=== PATIENT | male | born 1975 | race Caucasian/White ===

== ENCOUNTER 2017-10-25 03:20 | Inpatient (IN) | payer BC, OTHER ==
[~2017-10-25] VITALS: Ht 172.7 cm; Wt 83.1 kg
[2017-10-25] MEDS ORDERED: ONDANSETRON INJ 2 MG/ML 2 ML VIAL IV STA (03:38)
[2017-10-25] MEDS ORDERED: SODIUM CHLORIDE 0.9% 1000ML 1,000 ML IV STA (03:38)
[2017-10-25] MEDS ORDERED: KETOROLAC TROMETHAMINE 30 MG/ML VIAL IV STA (03:38)
[2017-10-25] MEDS ORDERED: HYDROmorphone INJ 1 MG/ML SYR IV STA (03:38)
--- NOTE | 2017-10-25 03:53 | EMERGENCY ROOM VISIT NOTE ---
History Report prepared by Fernando: Josey Singh Under the Supervision of: Dr. Narayan Ellison M.D. First contact with patient: 03:32 Chief Complaint: SKIN PROBLEM Stated Complaint: SKIN PROBLEM History of Present Illness The patient is a 42 year old male who presents to the Emergency Room with complaints of a worsening skin problem that started after he received his second series of psoriasis injections 2 days ago. He reports that his body is covered in rash and that he hurts everywhere. He rates his current pain an 8/ 10. Per patient's friend, the patient's skin feels like it's on fire and the patient appears to have difficulty ambulating secondary to his pain and skin pressure. The patient also notes that he takes an antidepressant and has no known allergies. Source of History: patient, friend Onset: 2 days ago Position: other (skin) Symptom Intensity: 8/10 Quality: other (skin problem) Timing: worsening Associated Symptoms: + rash Note: Additional symptoms: difficulty ambulating Review of Systems See HPI for pertinent positives & negatives. A total of 10 systems reviewed and were otherwise negative. Past Medical & Surgical Medical Problems: (1) Depression (2) Rash Family History No pertinent family history Social History Smoking Status: Never Smoker Marital Status: single Current/Historical Medications Scheduled Bupropion (Wellbutrin), 100 MG PO DAILY Citalopram Hydrobromide (Citalopram Hydrobromide), 1 TAB PO BID Cyanocobalamin (Vitamin B-12), 1,000 MCG PO DAILY Divalproex Sodium (Depakote), 1 TAB PO BID Folic Acid (Folvite), 1 MG PO DAILY Methotrexate (Methotrexate), 3 TABS PO WK Prednisone (Prednisone), 10 MG PO UD Miscellaneous Medications [Unknown Tb Med] Allergies Coded Allergies: Codeine (Verified Allergy, Unknown, UNKNOWN, 10/25/17) Physical Exam Vital Signs Date Time Temp Pulse Resp B/P (MAP) Pulse Ox O2 Delivery O2 Flow Rate FiO2 10/25/17 04:36 77 10/25/17 03:25 36.3 79 18 138/92 96 Room Air Physical Exam GENERAL: Awake, alert, well-appearing, in no acute distress HENT: Normocephalic, atraumatic. No oral mucosal lesions in mouth. EYES: Normal conjunctiva. Sclera non-icteric. NECK: Supple. No nuchal rigidity. FROM. No JVD. RESPIRATORY: Clear to auscultation. CARDIAC: Regular rate, normal rhythm. Extremities warm and well perfused. Pulses equal. ABDOMEN: Soft, non-distended. No tenderness to palpation. No rebound or guarding. No masses. RECTAL: Deferred. MUSCULOSKELETAL: Chest examination reveals no tenderness. The back is symmetrical on inspection without obvious abnormality. There is no CVA tenderness to palpation. No joint edema. LOWER EXTREMITIES: Calves are equal size bilaterally and non-tender. No edema. No discoloration. NEURO: Normal sensorium. No sensory or motor deficits noted. SKIN: Psoriatic like rash on hands, legs, trunk, back. Medical Decision & Procedures ER Provider Diagnostic Interpretation: CHEST ONE VIEW PORTABLE CLINICAL HISTORY: possible history of TB COMPARISON STUDY: No previous studies for comparison. FINDINGS: The heart is at the upper limits of normal in size. There is no failure. There is no focal pulmonary consolidation. There are no pleural effusions. No granulomatous calcifications are visualized. There is no conventional radiographic evidence of adenopathy.[ IMPRESSION: No active disease in the chest. Electronically signed by: Bal Macario M.D. 10/25/2017 6:40 AM Dictated Date/Time: 10/25/2017 6:40 AM Laboratory Results 10/25/17 04:07 Red Blood Count 4.92, Mean Corpuscular Volume 90.9, Mean Corpuscular Hemoglobin 30.7, Mean Corpuscular Hemoglobin Concent 33.8, Mean Platelet Volume 10.2, Neutrophils (%) (Auto) 63.7, Lymphocytes (%) (Auto) 17.7, Monocytes (%) (Auto) 12.3, Eosinophils (%) (Auto) 5.3, Basophils (%) (Auto) 0.4, Neutrophils # (Auto ) 4.45, Lymphocytes # (Auto) 1.24, Monocytes # (Auto) 0.86, Eosinophils # (Auto ) 0.37, Basophils # (Auto) 0.03 10/25/17 04:07 Test 10/25/17 04:07 10/25/17 04:08 White Blood Count 6.99 K/uL (4.8-10.8) Red Blood Count 4.92 M/uL (4.7-6.1) Hemoglobin 15.1 g/dL (14.0-18.0) Hematocrit 44.7 % (42-52) Mean Corpuscular Volume 90.9 fL (80-100) Mean Corpuscular Hemoglobin 30.7 pg (25-34) Mean Corpuscular Hemoglobin Concent 33.8 g/dl (32-36) Platelet Count 198 K/uL (130-400) Mean Platelet Volume 10.2 fL (7.4-10.4) Neutrophils (%) (Auto) 63.7 % Lymphocytes (%) (Auto) 17.7 % Monocytes (%) (Auto) 12.3 % Eosinophils (%) (Auto) 5.3 % Basophils (%) (Auto) 0.4 % Neutrophils # (Auto) 4.45 K/uL (1.4-6.5) Lymphocytes # (Auto) 1.24 K/uL (1.2-3.4) Monocytes # (Auto) 0.86 K/uL (0.11-0.59) Eosinophils # (Auto) 0.37 K/uL (0-0.5) Basophils # (Auto) 0.03 K/uL (0-0.2) RDW Standard Deviation 44.0 fL (36.4-46.3) RDW Coefficient of Variation 13.4 % (11.5-14.5) Immature Granulocyte % (Auto) 0.6 % Immature Granulocyte # (Auto) 0.04 K/uL (0.00-0.02) Anion Gap 9.0 mmol/L (3-11) Est Creatinine Clear Calc Drug Dose 85.4 ml/min Estimated GFR () 88.3 Estimated GFR (Non- 76.2 BUN/Creatinine Ratio 11.7 (10-20) Calcium Level 8.1 mg/dl (8.5-10.1) Total Bilirubin 0.3 mg/dl (0.2-1) Direct Bilirubin < 0.1 mg/dl (0-0.2) Aspartate Amino Transf (AST/SGOT) 17 U/L (15-37) Alanine Aminotransferase (ALT/SGPT) 25 U/L (12-78) Alkaline Phosphatase 71 U/L (45-117) Total Protein 7.4 gm/dl (6.4-8.2) Albumin 3.4 gm/dl (3.4-5.0) Lipase 278 U/L (73-393) Prothrombin Time 10.4 SECONDS (9.0-12.0) Prothromb Time International Ratio 1.0 (0.9-1.1) Labs reviewed by ED physician. Medications Administered Medications (Trade) Dose Ordered Sig/Britt Route Start Time Stop Time Status Last Admin Dose Admin Hydromorphone HCl (Dilaudid Inj) 1 mg NOW STAT IV 10/25/17 03:38 10/25/17 03:40 DC 10/25/17 04:11 1 MG Ketorolac Tromethamine (Toradol Inj) 30 mg NOW STAT IV 10/25/17 03:38 10/25/17 03:40 DC 10/25/17 04:11 30 MG Ondansetron HCl (Zofran Inj) 4 mg NOW STAT IV 10/25/17 03:38 10/25/17 03:40 DC 10/25/17 04:10 4 MG Sodium Chloride 1,000 ml @ 999 mls/hr Q1H1M STAT IV 10/25/17 03:38 10/25/17 04:38 DC 10/25/17 04:10 999 MLS/HR Methylprednisolone Sodium Succinate (Solu-Medrol IV) 125 mg NOW STAT IV 10/25/17 04:30 10/25/17 04:31 DC 10/25/17 04:46 125 MG Ranitidine HCl (zANTac TAB) 150 mg NOW ONCE PO 10/25/17 04:45 10/25/17 04:46 DC 10/25/17 04:46 150 MG Diphenhydramine HCl (Benadryl Inj) 50 mg NOW STAT IV 10/25/17 04:31 10/25/17 04:33 DC 10/25/17 04:46 50 MG ED Course 0334: Past medical records reviewed. The patient was evaluated in room B9. A complete history and physical examination was performed. 0519: I discussed the patient's case with Dr. Long - Family Medicine, [facility], he has agreed to evaluate the patient for further management and care. Medical Decision This is a 42-year-old male who presents emergency department with a severe rash. It is very difficult to get a story from this patient during a period of high volume and high acuity therefore he was interviewed multiple times. From what I can gather the patient was placed on a biologic for his psoriasis. He has a normal CBC normal renal profile. I will note that the patient has no mucosal lesions indicative of Elizondo-John syndrome. An IV was established, the patient was given Solu-Medrol as well as Dilaudid here in the emergency department. I did discuss the patient's case with the hospitalist service who agreed to admit the patient. Patient and significant other were in agreement with the treatment plan. Medication Reconcilliation Current Medication List: was personally reviewed by me Blood Pressure Screening Patient's blood pressure: Normal blood pressure Consults Time Called: [phone] Consulting Physician: Dr. Long - Family Medicine, [facility] Returned Call: [phone] I discussed the patient's case with Dr. Long, he has agreed to evaluate the patient for further management and care. Impression Primary Impression: Rash Scribe Attestation The scribe's documentation has been prepared under my direction and personally reviewed by me in its entirety. I confirm that the note above accurately reflects all work, treatment, procedures, and medical decision making performed by me. Departure Information Dispostion Being Evaluated By Hospitalist Prescriptions Prednisone (Prednisone) 10 Mg Tab 10 MG PO UD for 14 Days, #31 TAB take 40mg per day (Four tabs) for 3 days; then 30mg per day (three tabs) for 3 days; then 20mg per day (two tabs) for 3 days; then 10mg per day (1 tab) for 3 days; then 5mg per day (0.5 tab) for 2 days. Prov: Kenneth Barrera ., D.Archie. 10/25/17 Referrals No Doctor, Assigned (PCP) Patient Instructions [facility]
[2017-10-25 04:18] LABS: BASO % 0.4 %; BASO ABS # 0.03 K/uL (0-0.2); EOS % 5.3 %; EOS ABS # 0.37 K/uL (0-0.5); HEMATOCRIT 44.7 % (42-52); HEMOGLOBIN 15.1 g/dL (14.0-18.0); IG# 0.04 K/uL (0.00-0.02); LYMPH % 17.7 %; LYMPH ABS # 1.24 K/uL (1.2-3.4); MEAN CELL VOLUME 90.9 fL (80-100); MEAN CORPUSCULAR HEMOGLOBIN 30.7 pg (25-34); MEAN CORPUSCULAR HGB CONC 33.8 g/dl (32-36); MEAN PLATELET VOLUME 10.2 fL (7.4-10.4); MONO % 12.3 %; MONO ABS # 0.86 K/uL (0.11-0.59); NEUT % 63.7 %; NEUT ABS # 4.45 K/uL (1.4-6.5); PLATELET COUNT 198 K/uL (130-400); RED CELL DISTRIBUTION WIDTH CV 13.4 % (11.5-14.5); WHITE BLOOD COUNT 6.99 K/uL (4.8-10.8)
[2017-10-25] MEDS ORDERED: FOLI1TAB8 PO (04:22)
[2017-10-25] MEDS ORDERED: DIVA500T59 PO (04:22)
[2017-10-25] MEDS ORDERED: CYAN10005 PO (04:22)
[2017-10-25] MEDS ORDERED: CITA10TA4 PO (04:22)
[2017-10-25] MEDS ORDERED: METH2.5T PO (04:25)
[2017-10-25] MEDS ORDERED: METHYLPREDNISOLONE 125 MG VIAL IV STA (04:30)
[2017-10-25] MEDS ORDERED: DUPI300I INJ (04:30)
[2017-10-25] MEDS ORDERED: BUPR-83 PO (04:31)
[2017-10-25] MEDS ORDERED: DiphenhydrAMINE HCL 50 MG/ML VIAL IV STA (04:31)
[2017-10-25] MEDS ORDERED: [UNRECOGNIZED DRUG - REMARK] (04:32)
[2017-10-25 04:37] LABS: ALBUMIN 3.4 gm/dl (3.4-5.0); ALKALINE PHOSPHATASE 71 U/L (45-117); ALT/SGPT 25 U/L (12-78); AST/SGOT 17 U/L (15-37); BLOOD UREA NITROGEN 14 mg/dl (7-18); CALCIUM 8.1 mg/dl (8.5-10.1); CARBON DIOXIDE 26 mmol/L (21-32); CREATININE 1.16 mg/dl (0.60-1.40); GLUCOSE 90 mg/dl (70-99); LIPASE 278 U/L (73-393); POTASSIUM 3.8 mmol/L (3.5-5.1); SODIUM 137 mmol/L (136-145); TOTAL PROTEIN 7.4 gm/dl (6.4-8.2)
[2017-10-25] MEDS ORDERED: RANITIDINE HCL 150 MG TAB PO ONE (04:45)
[2017-10-25] MEDS ORDERED: DEXAMETHASONE INJ 10 MG in SYRINGE 0 ML IV STA (05:24)
[2017-10-25] MEDS ORDERED: ONDANSETRON INJ 2 MG/ML 2 ML VIAL IV PRN (05:45)
[2017-10-25] MEDS ORDERED: MAGNESIUM HYDROXIDE SUSP 30 ML UDC PO PRN (05:45)
[2017-10-25] MEDS ORDERED: POLYETHYLENE (MIRALAX) 17 GM PACK PO PRN (05:45)
[2017-10-25] MEDS ORDERED: ALUMINUM/MAGNESIUM/SIMETH (MAALOX MAX) 30 ML UDC PO PRN (05:45)
[2017-10-25] MEDS ORDERED: ACETAMINOPHEN 325 MG TAB PO PRN (05:45)
[2017-10-25] MEDS ORDERED: DiphenhydrAMINE HCL 50 MG/ML VIAL IV PRN (05:45)
[2017-10-25] MEDS ORDERED: DEXAMETHASONE SOD INJ 10 MG/ML VIAL ONE (06:09)
--- NOTE | 2017-10-25 06:42 | DIAGNOSTIC IMAGING REPORT ---
CHEST ONE VIEW PORTABLE CLINICAL HISTORY: possible history of TB COMPARISON STUDY: No previous studies for comparison. FINDINGS: The heart is at the upper limits of normal in size. There is no failure. There is no focal pulmonary consolidation. There are no pleural effusions. No granulomatous calcifications are visualized. There is no conventional radiographic evidence of adenopathy.[ IMPRESSION: No active disease in the chest. Electronically signed by: Bal Macario M.D. 10/25/2017 6:40 AM Dictated Date/Time: 10/25/2017 6:40 AM
[2017-10-25 06:59] VITALS: BP 107/72; PULSE 82; TEMP 36.7; O2SAT 100
[2017-10-25 07:30] VITALS: BP 107/72; PULSE 82; TEMP 36.7; O2SAT 100; Ht 172.7 cm; Wt 83.1 kg
[2017-10-25] MEDS: hydrOXYzine HCL 25 MG TAB PO SCH ×2 (07:30→11:51)
[2017-10-25] MEDS ORDERED: RANITIDINE HCL 150 MG TAB PO SCH (08:00)
--- NOTE | 2017-10-25 08:14 | History and Physical ---
History & Physical Date & Time of Service: Oct 25, 2017 at 08:14 Chief Complaint: RASH Primary Care Physician: No Doctor, Assigned History of Present Illness Source: patient, family 42 yo PMHx with History of Psoriasis presenting with diffuse rash. Patient reports he was previously misdiagnosed as eczema and was on chronic prednisone. He was subsequently rebiopsied and told he had diagnosis of psoriasis instead. His medication was changed to Dupixent, started 8 mos go stopped 1 month ago. 1 month ago he received injection of new medication he does not recall, and a repeat dose 2 days ago. He is presenting with a severe worsening generalized scaly red rash which started within the last 2 days. He denies fevers, chills, n/v, abdominal pain, diarrhea sob, wheezing throat swelling. He has no known allergies other than codeine. Patient also reports 3wks ago blood test for TB positive. placed on isoniazid for 6 mos. Past Medical/Surgical History Medical Problems: (1) Depression (2) Psoriasis (3) Rash Family History No pertinent family history Social History Smoking Status: Never Smoker Smokeless Tobacco Use: No Alcohol Use: occasionally Drug Use: none Marital Status: single Housing status: lives with family Occupational Status: employed Immunizations History of Influenza Vaccine: Unknown History of Tetanus Vaccine?: Unknown History of Pneumococcal: Unknown History of Hepatitis B Vaccine: Unknown Allergies Coded Allergies: Codeine (Verified Allergy, Unknown, UNKNOWN, 10/25/17) Home Medications Scheduled Bupropion (Wellbutrin), 100 MG PO DAILY Citalopram Hydrobromide (Citalopram Hydrobromide), 1 TAB PO BID Cyanocobalamin (Vitamin B-12), 1,000 MCG PO DAILY Divalproex Sodium (Depakote), 1 TAB PO BID Folic Acid (Folvite), 1 MG PO DAILY Methotrexate (Methotrexate), 3 TABS PO WK Prednisone (Prednisone), 10 MG PO UD Miscellaneous Medications [Unknown Tb Med] Review of Systems Constitutional: No fever, No sweats, No weakness ENT: No sore throat, No trouble swallowing Respiratory: No cough, No shortness of breath Cardiovascular: No chest pain, No edema, No palpitations Abdomen: No pain, No vomiting, No diarrhea, No constipation Genitourinary - Male: No dysuria, No urinary frequency, No urinary urgency Integumentary: + rash, + itch, + new/changing skin lesions Physical Exam Vital Signs Date Time Temp Pulse Resp B/P (MAP) Pulse Ox O2 Delivery O2 Flow Rate FiO2 10/25/17 06:59 36.7 82 18 107/72 (84) 100 Room Air 10/25/17 06:13 70 14 130/85 99 Room Air 10/25/17 04:36 77 10/25/17 03:25 36.3 79 18 138/92 96 Room Air GENERAL: alert,moderate distress, EYE EXAM: PERRL and EOM's grossly intact OROPHARYNX: no exudate, no erythema, lips, buccal mucosa, and tongue normal and mucous membranes are moist NECK: supple, no nuchal rigidity, no adenopathy, non-tender LUNGS: Clear to auscultation. Normal chest wall mechanics HEART: no murmurs, S1 normal and S2 normal ABDOMEN: abdomen soft, non-tender, normo-active bowel sounds, no masses, no rebound or guarding. BACK: Back is symmetrical on inspection and there is no deformity SKIN: diffuse scaly patches pink in color, desquamation involving hands, feet NEURO EXAM: Normal sensorium, cranial nerves II-XII grossly intact, normal speech, no gross weakness of arms, no gross weakness of legs. Diagnostics Laboratory Results Results Past 24 Hours Test 10/25/17 04:07 10/25/17 06:31 Range/Units White Blood Count 6.99 4.8-10.8 K/uL Red Blood Count 4.92 4.7-6.1 M/uL Hemoglobin 15.1 14.0-18.0 g/dL Hematocrit 44.7 42-52 % Mean Corpuscular Volume 90.9 80-100 fL Mean Corpuscular Hemoglobin 30.7 25-34 pg Mean Corpuscular Hemoglobin Concent 33.8 32-36 g/dl Platelet Count 198 130-400 K/uL Mean Platelet Volume 10.2 7.4-10.4 fL Neutrophils (%) (Auto) 63.7 % Lymphocytes (%) (Auto) 17.7 % Monocytes (%) (Auto) 12.3 % Eosinophils (%) (Auto) 5.3 % Basophils (%) (Auto) 0.4 % Neutrophils # (Auto) 4.45 1.4-6.5 K/uL Lymphocytes # (Auto) 1.24 1.2-3.4 K/uL Monocytes # (Auto) 0.86 0.11-0.59 K/uL Eosinophils # (Auto) 0.37 0-0.5 K/uL Basophils # (Auto) 0.03 0-0.2 K/uL RDW Standard Deviation 44.0 36.4-46.3 fL RDW Coefficient of Variation 13.4 11.5-14.5 % Immature Granulocyte % (Auto) 0.6 % Immature Granulocyte # (Auto) 0.04 0.00-0.02 K/uL Sodium Level 137 136-145 mmol/L Potassium Level 3.8 3.5-5.1 mmol/L Chloride Level 102 98-107 mmol/L Carbon Dioxide Level 26 21-32 mmol/L Anion Gap 9.0 3-11 mmol/L Blood Urea Nitrogen 14 7-18 mg/dl Creatinine 1.16 0.60-1.40 mg/dl Est Creatinine Clear Calc Drug Dose 85.4 ml/min Estimated GFR () 88.3 Estimated GFR (Non- 76.2 BUN/Creatinine Ratio 11.7 10-20 Random Glucose 90 70-99 mg/dl Calcium Level 8.1 8.5-10.1 mg/dl Total Bilirubin 0.3 0.2-1 mg/dl Direct Bilirubin < 0.1 0-0.2 mg/dl Aspartate Amino Transf (AST/SGOT) 17 15-37 U/L Alanine Aminotransferase (ALT/SGPT) 25 12-78 U/L Alkaline Phosphatase 71 45-117 U/L Total Protein 7.4 6.4-8.2 gm/dl Albumin 3.4 3.4-5.0 gm/dl Lipase 278 73-393 U/L Microbiology Results 10/25/17 Blood Culture, Received Pending 10/25/17 Blood Culture, Received Pending Diagnostic Radiology CHEST ONE VIEW PORTABLE CLINICAL HISTORY: possible history of TB COMPARISON STUDY: No previous studies for comparison. FINDINGS: The heart is at the upper limits of normal in size. There is no failure. There is no focal pulmonary consolidation. There are no pleural effusions. No granulomatous calcifications are visualized. There is no conventional radiographic evidence of adenopathy.[ IMPRESSION: No active disease in the chest. Impression Assessment and Plan 42 yo PMHx with History of Psoriasis presenting with diffuse rash following injection of new medication unknown to patient for psoriasis which was administered 2 days ago following initial dose, also found to have positive TB blood tests per patient 3 weeks ago at outside hospital for which he has been suspected to be on Isoniazid. Diffuse Rash - diffuse pink scaly patches consistent with psoriasis although given reported TB test positive cannot rule out association or drug reaction from isoniazid - possible exacerbation of psoriasis associated injected medication - Patient treated previously in [place], medical records requested - Given IV Solumedrol, 125 mg Zantac Dilaudid 1 mg, Zofran 4 mg in ED - Continue Ranitidine, Benadryl - Steroids held pending confirmation of TB reported by patient Possible TB - patient reported history of positive TB blood test 3 wks ago, no respiratory symptoms - suspected to have been placed on Isoniazid, which could also be contributor to rash on arrival - AFB x3, Quantiferon gold test ordered - Hold Anti-mycobacterial agent - Droplet, contact precautions for presumed TB - CXR ordered DVT PPX: Lovenox Disposition: Med/Surg Depression: Continue Bupropion Code status: Full Attending addendum: I have physically seen this patient, have supervised the medical residents activities, and agree with the H&P unless as otherwise noted. Assessment and Plan: Rash/polyarthralgias/questionable TB diagnosis-- Admits to nonmonitored bed negative pressure room. Discussed in consult with Dr. Medina from infectious disease. Hold on any additional steroids. Continue ranitidine IV and Benadryl IV. Order QuantiFERON gold test for Mycobacterium avium. Hold any more specific treatment at this time. Remainder of orders and notations as above. Advanced Directives Existing Advance Directive: No Existing Living Will: No Existing Power of Wet And Dry Sugar Bin Operator: No Resuscitation Status VTE Prophylaxis Will order VTE Prophylaxis: Yes Social Service Consult None Apply Note Total Time: Critical Care 30 - 74 minutes Resident Tracking Resident Involvement: Resident Care Provided Care Provided: Adult Hospital Medicine
[2017-10-25] MEDS ORDERED: ENOXAPARIN 40 MG/0.4 ML SYR SQ SCH (10:30)
[2017-10-25 11:41] VITALS: BP 118/69; PULSE 75; TEMP 36.6; O2SAT 96
--- NOTE | 2017-10-25 13:19 | Discharge Summary ---
Discharge Summary Date of Service Oct 25, 2017. Discharge Summary Admission Date: Oct 25, 2017 at 06:04 Discharge Date: Oct 25, 2017 Discharge Disposition: Home Principal Diagnosis: Inflammatory Psoriatic Rash Procedures: infectious disease: Assessment & Plan 42-year-old male with psoriasis recently started on isoniazid for what sounds like positive QuantiFERON assay, now with acute disseminated rash. Certainly drug reaction from isoniazid a possibility, less likely dealing with disseminated skin infection. Would hold isoniazid and steroids if possible, would hold additional treatment for psoriasis for now. Would obtain Dermatology consult. Will follow. Do not think patient has active tuberculosis , will discuss with epidemiology discontinuation of airborne precautions. Medication Reconciliation New Medications: Prednisone (Prednisone) 10 Mg Tab 10 MG PO UD for 14 Days, #31 TAB take 40mg per day (Four tabs) for 3 days; then 30mg per day (three tabs) for 3 days; then 20mg per day (two tabs) for 3 days; then 10mg per day (1 tab) for 3 days; then 5mg per day (0.5 tab) for 2 days. Continued Medications: Bupropion (Wellbutrin) 100 Mg Tab 100 MG PO DAILY, TAB Citalopram Hydrobromide (Citalopram Hydrobromide) Unknown Strength Tab 1 TAB PO BID, 3 Refills Cyanocobalamin (Vitamin B-12) 1,000 Mcg Tab 1000 MCG PO DAILY, TAB Divalproex Sodium (Depakote) 500 Mg Tab 1 TAB PO BID, TAB 2 Refills Folic Acid (Folvite) 1 Mg Tab 1 MG PO DAILY, TAB Methotrexate (Methotrexate) Unknown Strength Tab 3 TABS PO WK TAKE 3 TABS IN AM AND IN PM ON WEDNESDAYS [Unknown Tb Med] () Discontinued Medications: Dupilumab (Dupixent) 300 Mg/2 Ml Inj 1 DOSE INJ MONTHLY Discharge Exam Review of Systems: Constitutional: No fever, No chills Eyes: No eye pain ENT: No nasal symptoms, No sore throat, No trouble swallowing Respiratory: No cough, No shortness of breath Cardiovascular: No chest pain, No edema Abdomen: No pain, No nausea, No vomiting Musculoskeletal: No muscle pain, No calf pain Genitourinary - Male: No urinary frequency Neurologic: No weakness Physical Exam: General Appearance: WD/WN Eyes: normal inspection, sclerae normal ENT: normal ENT inspection, hearing grossly normal Neck: supple, trachea midline Respiratory/Chest: lungs clear, normal breath sounds, no respiratory distress, no accessory muscle use Cardiovascular: regular rate, rhythm, no gallop, no murmur Abdomen / GI: normal bowel sounds, non tender, soft Extremities: no calf tenderness, no pedal edema Neurologic/Psychiatric: no motor/sensory deficits, alert, normal mood/affect , oriented x 3 Skin: + rash (generalized hyperkerotitic with plagues that are erythematous and inflammed; there is desquamation of the hands; no signs of infection; no mucocutaneous involvement; rash is consistent with psoriatric rash but does not involve bilateral extensor elbows and knees) Lymphatic: no adenopathy Hospital Course Caveat: Patient is a vague historian. Mr. Minor Garcia is a 42 year old male who presented to [facility] with chief complaint of painful rash. Onset was yesterday. Patient has a history of psoriasis and stated his rash acutely worsened and became painful. He characterized the pain as burning with the location of rash being generalized. Patient is visiting a friend locally and resides in [place]. He states that he was previously on Dupixent a biologic for his psoriasis but recently was switched to another biologic which patient cannot recall the name. He states that he received the first injection of new medication one month ago and received the second dose 2 days ago. Of note, patient states he had a positive ppd test which was done because of biologic medication. 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 He denied fever, chills, cough, chest pain, shortness of breath, swelling. Hospital course: Patient was placed in isolation environment because of positive ppd. With patient being on isoniazid, a negative CXR here, and lack of upper respiratory symptoms. Patient is at no risk to infect others with discharge here from hospital. He received IM and IV steroids. Upon reexamination in the morning after admit, he states that his pain from rash has greatly improved. Patient already has a follow up appointment in 3 days, Saturday October 28, 2017 with his care team back home. Patient will keep appointment and follow-up with care team at home since they are already managing patient's current issues. Patient was agreeable to this. Minor was sent home with a Prednisone taper of 2 weeks. A quantiferon gamma test is still pending at discharge which was performed to definitively diagnosis if patient actually has latent TB. Total Time Spent: Less than 30 minutes This includes examination of the patient, discharge planning, medication reconciliation, and communication with other providers. Discharge Instructions Please refer to the electronic Patient Visit Report (Discharge Instructions) for additional information. Follow-Up Follow up in 3 days (Oct 28, 2017) with primary care team at home in [place].
[2017-10-25] MEDS ORDERED: PRED10TA PO (13:33)
--- NOTE | 2017-10-25 13:37 | Discharge Instructions ---
Discharge Instructions Date of Service Oct 25, 2017. Admission Reason for Admission: RASH Discharge Discharge Diagnosis / Problem: Inflammatory Psoriatic Rash Discharge Goals Goal(s): Decrease discomfort, Improve disease control, Prevent Disease Progression Activity Recommendations Activity Limitations: resume your previous activity . Instructions / Follow-Up Instructions / Follow-Up You were admitted for your painful psoriatic rash. We treated inflammation of rash with steroids. You will be continuing steroids at home with a steroid taper. A written prescription is provided to you for oral Prednisone (steroids) . Please follow up with your local care providers and keep your appointment for Friday10/28/17 that you already had scheduled. Current Hospital Diet Patient's current hospital diet: Regular Diet Discharge Diet Recommended Diet: Regular Diet Pending Studies Studies pending at discharge: yes List of pending studies: Interferon Gamma for TB Laboratory Results 10/25/17 04:07 Red Blood Count 4.92, Mean Corpuscular Volume 90.9, Mean Corpuscular Hemoglobin 30.7, Mean Corpuscular Hemoglobin Concent 33.8, Mean Platelet Volume 10.2, Neutrophils (%) (Auto) 63.7, Lymphocytes (%) (Auto) 17.7, Monocytes (%) (Auto) 12.3, Eosinophils (%) (Auto) 5.3, Basophils (%) (Auto) 0.4, Neutrophils # (Auto ) 4.45, Lymphocytes # (Auto) 1.24, Monocytes # (Auto) 0.86, Eosinophils # (Auto ) 0.37, Basophils # (Auto) 0.03 10/25/17 04:07 Test 10/25/17 04:07 10/25/17 04:08 10/25/17 06:31 White Blood Count 6.99 K/uL (4.8-10.8) Red Blood Count 4.92 M/uL (4.7-6.1) Hemoglobin 15.1 g/dL (14.0-18.0) Hematocrit 44.7 % (42-52) Mean Corpuscular Volume 90.9 fL (80-100) Mean Corpuscular Hemoglobin 30.7 pg (25-34) Mean Corpuscular Hemoglobin Concent 33.8 g/dl (32-36) Platelet Count 198 K/uL (130-400) Mean Platelet Volume 10.2 fL (7.4-10.4) Neutrophils (%) (Auto) 63.7 % Lymphocytes (%) (Auto) 17.7 % Monocytes (%) (Auto) 12.3 % Eosinophils (%) (Auto) 5.3 % Basophils (%) (Auto) 0.4 % Neutrophils # (Auto) 4.45 K/uL (1.4-6.5) Lymphocytes # (Auto) 1.24 K/uL (1.2-3.4) Monocytes # (Auto) 0.86 K/uL (0.11-0.59) Eosinophils # (Auto) 0.37 K/uL (0-0.5) Basophils # (Auto) 0.03 K/uL (0-0.2) RDW Standard Deviation 44.0 fL (36.4-46.3) RDW Coefficient of Variation 13.4 % (11.5-14.5) Immature Granulocyte % (Auto) 0.6 % Immature Granulocyte # (Auto) 0.04 K/uL (0.00-0.02) Anion Gap 9.0 mmol/L (3-11) Est Creatinine Clear Calc Drug Dose 85.4 ml/min Estimated GFR () 88.3 Estimated GFR (Non- 76.2 BUN/Creatinine Ratio 11.7 (10-20) Calcium Level 8.1 mg/dl (8.5-10.1) Total Bilirubin 0.3 mg/dl (0.2-1) Direct Bilirubin < 0.1 mg/dl (0-0.2) Aspartate Amino Transf (AST/SGOT) 17 U/L (15-37) Alanine Aminotransferase (ALT/SGPT) 25 U/L (12-78) Alkaline Phosphatase 71 U/L (45-117) Total Protein 7.4 gm/dl (6.4-8.2) Albumin 3.4 gm/dl (3.4-5.0) Lipase 278 U/L (73-393) Prothrombin Time 10.4 SECONDS (9.0-12.0) Prothromb Time International Ratio 1.0 (0.9-1.1) Medical Emergencies . Who to Call and When: Medical Emergencies: If at any time you feel your situation is an emergency, please call 911 immediately. . Non-Emergent Contact Non-Emergency issues call your: Primary Care Provider . Past History Medical & Surgical History: (1) Psoriasis . "Provider Documentation" section prepared by Kenneth Barrera. .
--- NOTE | 2017-10-25 15:01 | Medical Consult ---
Consultation Date of Consultation: Oct 25, 2017. Attending Physician: Evan Martinez D.O. Reason for Consultation: Possible TB History of Present Illness 42-year-old male with history of psoriasis, previously on Dupixent therapy without improvement, more recently switched to new agent of which she does not know the name. Patient apparently had QuantiFERON assay for TB and 2 weeks ago was started on isoniazid presumably for a positive result. Patient now presents with 1-2 day history of severely worsening rash with severe pruritus. Denies any significant fever or chills. No pulmonary complaints. Chest x-ray, read by me, shows no obvious infiltrate or other evidence of prior tuberculosis. No obvious contact with TB. No other significant travel or exposure history. Past Medical/Surgical History Past Medical/Surgical History Medical Problems: (1) Depression (2) Psoriasis (3) Rash Family History No pertinent family history Social History Smoking Status: Never Smoker Alcohol Use: occasionally Drug Use: none Marital Status: single Occupation Status: employed Allergies Coded Allergies: Codeine (Verified Allergy, Unknown, UNKNOWN, 10/25/17) Current Inpatient Medications Current Inpatient Medications Medications (Trade) Dose Ordered Sig/Britt Route Start Time Stop Time Status Last Admin Dose Admin Acetaminophen (Tylenol Tab) 650 mg Q4H PRN PO 10/25/17 05:45 11/24/17 05:44 Al Hydrox/Mg Hydrox/Simethicone (Maalox Max Susp) 15 ml Q4H PRN PO 10/25/17 05:45 11/24/17 05:44 Magnesium Hydroxide (Milk Of Magnesia Susp) 30 ml Q6H PRN PO 10/25/17 05:45 11/24/17 05:44 Polyethylene (Miralax Powder Packet) 17 gm DAILY PRN PO 10/25/17 05:45 11/24/17 05:44 Ondansetron HCl (Zofran Inj) 4 mg Q6H PRN IV 10/25/17 05:45 11/24/17 05:44 Hydroxyzine HCl (Vistaril Tab) 25 mg Q6@0000,0600,1200,1800 PO 10/25/17 07:30 11/24/17 07:29 10/25/17 11:51 25 MG Ranitidine HCl (zANTac TAB) 150 mg QAM PO 10/25/17 08:00 11/24/17 08:59 10/25/17 11:50 150 MG Diphenhydramine HCl (Benadryl Inj) 50 mg Q4H PRN IV 10/25/17 05:45 11/24/17 05:44 Bupropion HCl (Wellbutrin Tab) 100 mg DAILY PO 10/25/17 08:00 11/24/17 08:59 10/25/17 11:49 100 MG Enoxaparin Sodium (Lovenox Inj) 40 mg Q24H SQ 10/25/17 10:30 11/24/17 10:29 10/25/17 11:52 40 MG Review of Systems All systems were reviewed and are negative except as per HPI Physical Exam Date Time Temp Pulse Resp B/P (MAP) Pulse Ox O2 Delivery O2 Flow Rate FiO2 10/25/17 11:41 36.6 75 16 118/69 (85) 96 Room Air 10/25/17 07:30 36.7 82 18 107/72 100 Room Air 10/25/17 06:59 36.7 82 18 107/72 (84) 100 Room Air 10/25/17 06:13 70 14 130/85 99 Room Air 10/25/17 04:36 77 10/25/17 03:25 36.3 79 18 138/92 96 Room Air General Appearance: WD/WN, + mild distress Head: normocephalic, atraumatic Eyes: normal inspection, EOMI, sclerae normal ENT: normal ENT inspection, hearing grossly normal, pharynx normal Neck: supple, no adenopathy, thyroid normal, trachea midline Respiratory/Chest: chest non-tender, lungs clear, normal breath sounds, no respiratory distress Cardiovascular: regular rate, rhythm, no gallop, no murmur Abdomen/GI: normal bowel sounds, non tender, soft, no organomegaly Back: normal inspection, no CVA tenderness Extremities/Musculoskelatal: no calf tenderness, normal capillary refill, non- tender Neurologic/Psych: alert, oriented x 3, + abnormal cerebellar tests Skin: + rash (Diffuse psoriasis warm rash, areas of deep pigmentation, erythematous macules) Lymphatic: no adenopathy Laboratory Results Date/Time Source Procedure Growth Status 10/25/17 04:07 Blood Blood Culture Pending Received 10/25/17 04:00 Blood Blood Culture Pending Received Last 24 Hours Test 10/25/17 04:07 10/25/17 04:08 10/25/17 06:31 White Blood Count 6.99 K/uL Red Blood Count 4.92 M/uL Hemoglobin 15.1 g/dL Hematocrit 44.7 % Mean Corpuscular Volume 90.9 fL Mean Corpuscular Hemoglobin 30.7 pg Mean Corpuscular Hemoglobin Concent 33.8 g/dl Platelet Count 198 K/uL Mean Platelet Volume 10.2 fL Neutrophils (%) (Auto) 63.7 % Lymphocytes (%) (Auto) 17.7 % Monocytes (%) (Auto) 12.3 % Eosinophils (%) (Auto) 5.3 % Basophils (%) (Auto) 0.4 % Neutrophils # (Auto) 4.45 K/uL Lymphocytes # (Auto) 1.24 K/uL Monocytes # (Auto) 0.86 K/uL Eosinophils # (Auto) 0.37 K/uL Basophils # (Auto) 0.03 K/uL RDW Standard Deviation 44.0 fL RDW Coefficient of Variation 13.4 % Immature Granulocyte % (Auto) 0.6 % Immature Granulocyte # (Auto) 0.04 K/uL Sodium Level 137 mmol/L Potassium Level 3.8 mmol/L Chloride Level 102 mmol/L Carbon Dioxide Level 26 mmol/L Anion Gap 9.0 mmol/L Blood Urea Nitrogen 14 mg/dl Creatinine 1.16 mg/dl Est Creatinine Clear Calc Drug Dose 85.4 ml/min Estimated GFR () 88.3 Estimated GFR (Non- 76.2 BUN/Creatinine Ratio 11.7 Random Glucose 90 mg/dl Calcium Level 8.1 mg/dl Total Bilirubin 0.3 mg/dl Direct Bilirubin < 0.1 mg/dl Aspartate Amino Transf (AST/SGOT) 17 U/L Alanine Aminotransferase (ALT/SGPT) 25 U/L Alkaline Phosphatase 71 U/L Total Protein 7.4 gm/dl Albumin 3.4 gm/dl Lipase 278 U/L Prothrombin Time 10.4 SECONDS Prothromb Time International Ratio 1.0 Patient Name: SAL PETERS Unit Number: [id number] Dictated: 10/25/17639 Transcribed: 10/25/17639 ARG Printed Date/Time: [~ rep prt dt]/[~ rep prt tm] [~ rep ct labl] - [~ rep ct ivnm] [facility] [place] [address] Dictated: 10/25/17639 Transcribed: 10/25/17639 ARG Printed Date/Time: [~ rep prt dt]/[~ rep prt tm] [~ rep ct labl] - [~ rep ct ivnm] CHEST ONE VIEW PORTABLE CLINICAL HISTORY: possible history of TB COMPARISON STUDY: No previous studies for comparison. FINDINGS: The heart is at the upper limits of normal in size. There is no failure. There is no focal pulmonary consolidation. There are no pleural effusions. No granulomatous calcifications are visualized. There is no conventional radiographic evidence of adenopathy.[ IMPRESSION: No active disease in the chest. Electronically signed by: Bal Macario M.D. 10/25/2017 6:40 AM Dictated Date/Time: 10/25/2017 6:40 AM The status of this report is Signed. Draft = Not yet reviewed or approved by Radiologist. Signed = Reviewed and approved by Radiologist. <AttendingPhy></AttendingPhy> <FamilyPhy>No Doctor, Assigned</FamilyPhy> < PrimaryPhy>No Doctor, Assigned</PrimaryPhy> <UnitNumber>[id number]</UnitNumber> <VisitNumber>[id number]</VisitNumber> <PatientName>LORRAINESAL MIRELA</ PatientName> <DateOfBirth>1975</DateOfBirth> <Location>[facility]</Location> < ServiceDate>10/25/17</ServiceDate> <MNE>ESINDI</MNE> <OrderingPhy>Jerry Long MD</OrderingPhy> <OrderingPhyMNE>f rep ord dr fournier</OrderingPhyMNE> < DictatingPhyMNE>f rep dict dr fournier</DictatingPhyMNE> <CCListMNE>f rep ct shantanu</ CCListMNE> <AdmittingPhyMNE>f pt admit dr fournier</AdmittingPhyMNE> <AttendingPhyMNE >f pt attend dr fournier</AttendingPhyMNE> <ConsultingPhyMNE>f pt consult dr fournier</ConsultingPhyMNE> <FamilyPhyMNE>f pt fam dr fournier</FamilyPhyMNE> <OtherPhyMNE>f pt other dr fournier</OtherPhyMNE> < PrimaryPhyMNE>f pt prim care dr fournier</PrimaryPhyMNE> <ReferringPhyMNE>f pt referring dr fournier</ReferringPhyMNE> Assessment & Plan 42-year-old male with psoriasis recently started on isoniazid for what sounds like positive QuantiFERON assay, now with acute disseminated rash. Certainly drug reaction from isoniazid a possibility, less likely dealing with disseminated skin infection. Would hold isoniazid and steroids if possible, would hold additional treatment for psoriasis for now. Would obtain Dermatology consult. Will follow. Do not think patient has active tuberculosis , will discuss with epidemiology discontinuation of airborne precautions.
[2017-10-25 15:18] VITALS: BP 112/63; PULSE 78; TEMP 36.8; O2SAT 99
[2017-10-25 15:51] VITALS: BP 112/63; PULSE 78; TEMP 36.8; O2SAT 99
[2017-10-29 11:59] LABS: QUANTIF MITOGEN-NIL 7.38 IU/ML; QUANTIFERON POSITIVE (NEGATIVE); QUANTIFERON NIL 0.07 IU/ML
== END 2017-10-25 17:07 | disposition home or self-care (01) | DRG 596 ==
LOC: C.EDB 03:22 → C.4E 06:04 → ENRESERV 06:18
PROVIDERS: ADMIT Hospitalist; ATTEND Family Medicine
DX: L40.8 Other psoriasis (principal); L27.0 Generalized skin eruption due to drugs and medicaments taken internally; T37.1X5A Adverse effect of antimycobacterial drugs, initial encounter; M25.50 Pain in unspecified joint; R76.11 Nonspecific reaction to tuberculin skin test without active tuberculosis; F32.9 Major depressive disorder, single episode, unspecified; Z79.52 Long term (current) use of systemic steroids; Z79.899 Other long term (current) drug therapy; Z88.5 Allergy status to narcotic agent